=== PATIENT | female | born 1990 ===

== ENCOUNTER → 2018-08-08 | Outpatient (REF) | payer OTHER ==
[2018-08-08 19:01] LABS: FREE T4 0.98 NG/DL (0.76-1.46); THYROID STIMULATING HORMONE 1.84 uIU/ML (0.358-3.740)
== END ==
LOC: M LABDRAW1 15:42
PROVIDERS: ATTEND Internal Medicine Endocrinology, Diabetes & Metabolism
DX: E04.2 Nontoxic multinodular goiter (principal)